=== PATIENT | male | born 1950 | race Caucasian/White ===

== ENCOUNTER 2020-02-23 16:52 | Outpatient (CLI) | payer MEDICARE | END 2020-02-23 16:53 | disposition home or self-care (01) | LOC: COV 16:52 | PROVIDERS: ATTEND Family Medicine | DX: R05 Cough (principal); M79.10 Myalgia, unspecified site; R53.83 Other fatigue; J02.9 Acute pharyngitis, unspecified; R19.7 Diarrhea, unspecified; R43.9 Unspecified disturbances of smell and taste; J34.89 Other specified disorders of nose and nasal sinuses; Z20.828 Contact with and (suspected) exposure to other viral communicable diseases ==

== ENCOUNTER 2020-09-24 13:53 | Outpatient (CLI) | payer MEDICARE, OTHER | END 2020-09-24 13:54 | disposition home or self-care (01) | LOC: LAB.S 13:53 | PROVIDERS: ATTEND Internal Medicine | DX: M86.141 Other acute osteomyelitis, right hand (principal) | CPT/HCPCS: 36415; 85651 ==

== ENCOUNTER 2022-10-08 10:10 | Outpatient (CLI) | payer MEDICARE, OTHER ==
--- NOTE | 2022-10-08 10:55 | SLEEP CARE CONSULTATION ---
Information from patient questionnaire entered by Andrey Price. I have reviewed and concur with the information entered by Andrey Price. This document represents the service I personally performed and the decisions made by me, Criss Khan ARNP. History of Present Illness Service Date and Time: 10/08/2022 1000 Reason for Visit: New patient, sleep apnea on CPAP therapy Chief Complaint: reports: Snoring, Other (UPDATE SUPPLIES) Date of Onset: 5-6 years on CPAP Usual bedtime: 10PM Time it takes to fall asleep: 10MIN Snores at night: Yes Sleeps alone due to snoring: No Number of times waking at night: 2 Reasons for waking at night: reports: Bathroom, Other (UNKNOWN ) Toss, Turn, or Twitch while sleeping: No Recalls having dreams: Yes Feels refreshed in the morning: Yes Morning headache: No Sleepy or fatigued during the day: No Ever fallen asleep while driving: No Prior sleep studies: Yes Additional HPI information: JOAN NICKERSON was previously diagnosed to have unknown, AHI unknown, sleep apnea-hypopnea syndrome and comes in today to establish care for CPAP therapy. He has been on a CPAP for at least 5-6 years. He has not been following with a sleep provider and does not have a copy of his last sleep study. - Parasomnia Symptoms Ever been unable to move upon waking from sleep: No Walks in sleep: No Talks in sleep: No Ever acted out dreams in sleep: No Ever felt weak in the knees when startled or emotional: No Bothered by creepy, crawly, restless sensations in legs: No Problems with memory or concentration: No CPAP Compliance Data - Data Reviewed with Patient Average duration of nightly device use: 3 hour 31 minutes Compliance rate %: 7 ( days used; 07-02-2021 to 09-29-2021) Current pressure setting (cmH2O): 4-20 (median 10.9, avg 13.9, max 14.8) Average residual AHI: 2.1 Central apnea: 0.1 Obstructive apnea: 0.1 Hypopnea: 1.9 Average large leak: 4.8 LPM Compliance data discussion: He has a ResMed Airsense 10 that was setup on 05/2020. He has not been using it because the pressure is not comfortable for him. He has been using his travel AirMini that shows 2:56 hours, 1.7 AHI and average pressure used 9.9 cmH2O. He has not been getting supplies from anyone for a long time. He has been just washing and reusing his old supplies. He is using the Resmed Airfit F20 mask. Subjective Missed days of use due to: reports: other (uses travel AirMini) Patient concerns: denies: aerophagia, mask discomfort, air blowing in eyes, mask leak noise, condensation in mask/hose, nasal congestion, dry mouth, nose, throat, epistaxis Observed to snore while using device: No Current pressure setting perceived as: comfortable On therapy, patient: reports: sleeping better, awakening more refreshed, being more awake and alert during the day, more rested overall. denies: drowsiness while driving Initial [place] Sleepiness Scale score: 7 (10/08/22) Past Medical History Past Medical History: reports: Hypertension, GERD, Other (HYPERLIPIDEMIA; BPH) Social History The patient's occupation is a SE. Patient is and lives in [place]. Have you smoked in the past 12 months: No Alcohol use: No Caffeine use: Yes Caffeine amount and frequency: 3-5 CUPS DAILY Family History Family history of sleep disordered breathing: Yes Family Hx Sleep Apnea: Father: Snoring, Sleep apnea - Untreated Allergies and Home Medications Known drug allergies: No Drug allergies reviewed: Yes Home medication list reviewed: Yes Allergy and home medication list: Medications: Atorvastatin 20 mg daily Lisinopril 20 mg daily Omeprazole 40 mg daily Tamsulosin 0.4 mg daily Review of Systems Cardiovascular: reports: high blood pressure Gastrointestinal: reports: heartburn Urinary: reports: frequency Neurological: denies: headaches Psychiatric: denies: anxiety, depression Physical Exam Vital signs obtained and entered by: ANDREY Aguirre MA Blood Pressure: 124/78 (LEFT ARM) Cuff size: regular Heart Rate: 89 O2 Saturation: 99 Height: 5 ft 5 in Weight: 190 lb Body Mass Index: 31.6 BMI Classification: Obese Neck circumference: 16.5 Impression and Plan 1. Obstructive Sleep Apnea-Hypopnea Syndrome, unknown, with good treatment compliance and good apnea control. On CPAP therapy, the patient has better sleep quality and is more rested overall. Patient has been using CPAP nightly and normally uses his ResMed air mini. He feels the pressure on his AirSense 10 goes too high and will wake him up. He has not used it since last year. He does not have a copy of his last sleep study and has not seen a sleep provider for 5 to 6 years. I will order a sleep study so we can verify his diagnosis and severity. Once we have this we can set him up with a DME supplier. I will adjust his pressure on his AirSense 10 to be more comfortable and encouraged him to call if the pressure change is uncomfortable and he is unable to use it. He voiced understanding and agreement with plan. Patient's apnea severity and rationale for treatment to reduce apnea, improve sleep quality and reduce cardiovascular and cerebrovascular events was reviewed. I also reviewed the benefit of consistent device use of CPAP for hypertension and gastric reflux. * PSG/HST to verify diagnosis and severity * Change autoCPAP pressure to 5-10 cmH2O * Notify me if snoring with mask or feeling that the pressure is too much or too little * Attempt to lose weight * Call this office if any problems using CPAP * Return for follow up after sleep study to discuss results, or sooner if concerns arise Counseling Topics: Spare mask, Weight loss health impact Visit Type: In Office Time Spent with Patient (minutes): 44 Provider Statement: I spent 100% of the Face to Face Visit with the patient with greater than 50% spent counseling the patient and coordination of care.
[2022-10-08 11:00] VITALS: BP 124/78
== END 2022-10-08 10:11 | disposition home or self-care (01) ==
LOC: SC 10:10
PROVIDERS: ATTEND Nurse Practitioner Family
DX: G47.33 Obstructive sleep apnea (adult) (pediatric) (principal); E66.9 Obesity, unspecified; Z68.31 Body mass index [BMI] 31.0-31.9, adult
CPT/HCPCS: 99203; G0463; 99212